=== PATIENT | female | born 1980 | race Caucasian/White ===

== ENCOUNTER → 2019-10-02 | Outpatient (CLI) | payer OTHER ==
[~2019-10-02] MED LIST: FLUO10CA13 PO; GADOTERATE 5 MMOL/10ML VIAL. IVP ONE; HYDR12.58 PO
--- NOTE | 2019-10-02 09:18 | KCIC ---
EXAMINATION: Magnetic resonance imaging (MRI) of the brain and brainstem without and with contrast 10/02/2019 8:00 AM HISTORY: Paresthesia of the skin. Vision loss in the left eye. Memory loss. TECHNIQUE: Multiplanar multi-weighted MRI of the brain and brainstem was performed without and with intravenous contrast using the general brain protocol. Contrast information: 16 mL Gadolinium based contrast COMPARISON: None available. FINDINGS: Evaluation is degraded by motion artifact. The scalp and calvarium are normal. The superior sagittal sinus demonstrates normal venous flow. The corpus callosum is normal in shape and signal intensity. The posterior fossa is unremarkable. The pituitary and sella are normal. The brainstem and craniocervical junction are unremarkable. There is a single subcortical focus of FLAIR signal hyperintensity measuring 4 mm in the right frontal lobe. Diffusion weighted images reveal no hyperintensities to suggest acute cerebral infarction. The susceptibility weighted sequences reveal no evidence of acute or chronic hemorrhage. The ventricles are normal in size and position without evidence of hydrocephalus. There are no areas of abnormal contrast enhancement. The paranasal sinuses are normal. The visualized portions of the mastoids are unremarkable. The orbits appear normal. Normal flow voids are demonstrated in the carotid arteries and basilar artery. IMPRESSION: 1. No evidence for acute or subacute ischemia. 2. Subcortical FLAIR signal hyperintensity measuring 4 mm in the right frontal lobe is nonspecific in this age group. A 3-6 month follow-up MRI of the brain could be of benefit if there is clinical concern for underlying demyelinating disease. No suspicious enhancement is visualized. Electronically signed by: Dulce Guaman MD (10/02/2019 9:15 AM) [facility]
== END ==
LOC: KCIC MRI 07:46
PROVIDERS: ATTEND Psychiatry & Neurology Neurology with Special Qualifications in Child Neurology
DX: R20.2 Paresthesia of skin (principal); H54.62 Unqualified visual loss, left eye, normal vision right eye; R41.3 Other amnesia
CPT/HCPCS: 70553; A9575

== ENCOUNTER → 2019-12-31 | Outpatient (CLI) | payer OTHER ==
[~2019-12-31] MED LIST changes: -GADOTERATE 5 MMOL/10ML VIAL. IVP ONE
--- NOTE | 2019-12-31 09:36 | KCIC ---
BRAIN W/O CONTRAST Date: 12/31/2019 8:00 AM Indication: PARASTHESIA OF SKIN. Follow up to previous MRI here in September. BUE numbness. Comparison: 10/02/2019. Technique: Multiplanar multisequence MRI of the brain was performed without intravenous contrast using the standard protocol. Findings: No acute infarct. No acute or chronic hemorrhage. The ventricles are normal in size and configuration without hydrocephalus. Stable focus of T2/FLAIR hyperintensity in the right frontal subcortical white matter. The scalp and calvarium are normal. The pituitary and sella are normal. No Chiari malformation. The visualized upper cervical spine is normal. The visualized orbits and globes are normal. The visualized paranasal sinuses are clear. The mastoid air cells are clear. Normal flow voids within the vertebral, basilar, and internal carotid arteries indicating patency. IMPRESSION: No acute intracranial process. Stable focus of T2/FLAIR hyperintense signal in the right frontal subcortical white matter, nonspecific but can be seen with chronic small vessel ischemic disease or sequela of chronic migraines. Other considerations would include demyelinating disease, drug toxicity, prior infection (Lyme disease), or prior injury. Electronically signed by: Warren Vann MD (12/31/2019 9:33 AM) [id number]
== END | disposition home or self-care (01) ==
LOC: KCIC MRI 07:52
PROVIDERS: ATTEND Psychiatry & Neurology Neurology with Special Qualifications in Child Neurology
DX: R20.2 Paresthesia of skin (principal)
CPT/HCPCS: 70551

== ENCOUNTER → 2020-04-04 | Outpatient (CLI) | payer OTHER ==
[~2020-04-04] MED LIST changes: +HYDR-3164 PO
== END ==
LOC: LAB 15:27
PROVIDERS: ATTEND Orthopaedic Surgery
DX: Z01.812 Encounter for preprocedural laboratory examination (principal); Z20.828 Contact with and (suspected) exposure to other viral communicable diseases
CPT/HCPCS: U0003

== ENCOUNTER 2020-04-08 06:11 | Day surgery (SDC) | payer OTHER ==
[~2020-04-08] VITALS: Ht 160 cm; Wt 94.8 kg
[~2020-04-08 06:11] MED LIST changes: +CLINDAMYCIN 900MG PREMIX 50 ML IV PRN; -HYDR-3164 PO; +HYDROmorphone 2 MG/ML VIAL IVP PRN; +IV RINGERS,LACTATED 1000ML 1,000 ML IV SCH; +MORPHINE SULFATE 2 MG/ML VIAL. IVP PRN; +PROCHLORPERAZINE 10 MG/2 ML VIAL. IVP PRN; +fentaNYL PF VIAL 100 MCG/2 ML VIAL IVP PRN
[2020-04-08] MEDS ORDERED: HYDR-3164 PO (07:02)
[2020-04-08] MEDS ORDERED: SEVOFLURANE 61 TO 120 MINUTES. IH ONE (07:04)
[2020-04-08] MEDS ORDERED: DEXAMETHASONE SOD PHOS 4 MG/ML VIAL ONE (07:04)
[2020-04-08] MEDS ORDERED: PROPOFOL 10 MG/ML (20ML) VIAL. IV ONE (07:04)
[2020-04-08] MEDS ORDERED: LIDOCAINE 2% PF 5 ML VIAL. ONE (07:04)
[2020-04-08] MEDS ORDERED: ONDANSETRON PF 4 MG/2 ML VIAL. ONE (07:04)
--- NOTE | 2020-04-08 07:04 | DISCH ---
DISCHARGE INSTRUCTIONS Condition on Discharge Condition on Discharge: Stable Activity After Discharge Activity Instructions for Disc: Other, see below (Avoid hard grasp, may do fine motor use such as eating writing typing as symptoms allow) Lifting Instructions after Dis: No heavy lifting Weight Bearing Status after Di: As tolerated Diet after Discharge Diet after Discharge: Regular Wound Incision Care Wound/Incision Care: Ice to area for comfort, Do not change dressing (Keep dressing on for protection, remove only if soiled) Contacting the DRPablo after DC Call your doctor for: Concerns you may have Follow-Up Follow up with: Dr. Aguilar 10 days VERONICA AGUILAR MD Apr 08, 2020 07:04
[2020-04-08] MEDS ORDERED: MIDAZOLAM HCL/PF 2 MG/2 ML VIAL. ONE (07:05)
[2020-04-08] MEDS ORDERED: BUPIVACAINE MPF 0.5% 30 ML VIAL. ONE (07:09)
[2020-04-08] MEDS ORDERED: GLYCOPYRROLATE 1 MG/5 ML VIAL. ONE (07:35)
[2020-04-08] MEDS ORDERED: KETOROLAC 30 MG/ML VIAL. ONE (07:37)
[2020-04-08] MEDS ORDERED: HYDROcodone/APAP 5/325MG 1 TAB TABLET PO ONE (08:15)
[2020-04-08 09:33] VITALS: BP 110/69
--- NOTE | 2020-04-08 20:47 | PDOC4 ---
Operative Note Operative Note Date of surgery: 04/08/2020 Preoperative diagnosis: Right carpal tunnel syndrome Postoperative diagnosis same with moderate median nerve compression at carpal tunnel Operative procedure: Right carpal tunnel release Surgeon: Jeff Vegetable Thinner: Kiran jerry Anesthesia: General Estimated blood loss: 1 cc Complications: None Operative indications: Chantelle has had worsening numbness in the median nerve distribution of the right hand accompanied by verifying EMG studies showing median nerve compression at the carpal tunnel and she has been unresponsive desp ite nonoperative management. We covered risks benefits postoperative course including the possibility of incomplete relief or worsening due to nerve or blood vessel damage, incisional tenderness infection medical or other anesthetic complications. She agrees to proceed with surgical evaluation and treatment Operative text: Patient was identified procedure verified patient placed in the supine position on the operating table. After adequate amounts of general anesthesia were administered right upper extremity was prepped and draped in standard sterile fashion with an upper arm tourniquet. After timeout was performed patient procedure identified and verified the right upper extremity was exsanguinated by Esmarch bandage tourniquet inflated to 250 mmHg and a midline incision was made just distal to the distal palmar crease dissection carried out down to the transverse carpal ligament which was divided sharply first with a scalpel and then at his proximal and distal extent with tenotomy scissors under direct visualization. Median nerve was noted to have moderate compression and complete release was verified visibly and palpably. Half percent plain Marcaine was injected into the skin and subcutaneous tissues and closure accomplished with nylon suture in a mattress fashion. Sterile dressings were applied patient was returned to recovery room in stable condition having tolerated procedure well. Kiran jerry was present for the procedure assisted in patient positioning prepping draping retraction closure and dressings VERONICA LOPEZ MD Apr 08, 2020 20:47
== END 2020-04-08 09:27 | disposition home or self-care (01) ==
LOC: SURG 06:11
PROVIDERS: ATTEND Orthopaedic Surgery
DX: G56.01 Carpal tunnel syndrome, right upper limb (principal); I10 Essential (primary) hypertension; E66.9 Obesity, unspecified; F32.9 Major depressive disorder, single episode, unspecified; H54.62 Unqualified visual loss, left eye, normal vision right eye; Z79.899 Other long term (current) drug therapy; Z88.0 Allergy status to penicillin; Z98.51 Tubal ligation status; Z98.891 History of uterine scar from previous surgery; Z68.37 Body mass index [BMI] 37.0-37.9, adult; Z98.890 Other specified postprocedural states; Z98.82 Breast implant status
CPT/HCPCS: 64721; 81025; J1100; J1885; J2250; J2405; J2704; J3490; J7120

== ENCOUNTER → 2020-06-06 | Outpatient (CLI) | payer OTHER ==
[~2020-06-06] MED LIST changes: -CLINDAMYCIN 900MG PREMIX 50 ML IV PRN; +DEXT10TA23 PO; +HYDR-2761 PO; +HYDR-3164 PO; -HYDROmorphone 2 MG/ML VIAL IVP PRN; -IV RINGERS,LACTATED 1000ML 1,000 ML IV SCH; +LISI1TAB23 PO; -MORPHINE SULFATE 2 MG/ML VIAL. IVP PRN; -PROCHLORPERAZINE 10 MG/2 ML VIAL. IVP PRN; -fentaNYL PF VIAL 100 MCG/2 ML VIAL IVP PRN
== END ==
LOC: LAB 09:26
PROVIDERS: ATTEND Orthopaedic Surgery
DX: Z01.812 Encounter for preprocedural laboratory examination (principal); Z20.822 Contact with and (suspected) exposure to COVID-19; G56.03 Carpal tunnel syndrome, bilateral upper limbs
CPT/HCPCS: U0003

== ENCOUNTER 2020-06-10 06:06 | Day surgery (SDC) | payer OTHER ==
[~2020-06-10] VITALS: Ht 160 cm; Wt 94.8 kg
[~2020-06-10 06:06] MED LIST changes: +CLINDAMYCIN 900MG PREMIX 50 ML IV PRN; -HYDR-2761 PO; +HYDROmorphone 2 MG/ML VIAL IVP PRN; +IV RINGERS,LACTATED 1000ML 1,000 ML IV SCH; +MORPHINE SULFATE 2 MG/ML VIAL. IVP PRN; +PROCHLORPERAZINE 10 MG/2 ML VIAL. IVP PRN; +fentaNYL PF VIAL 100 MCG/2 ML VIAL IVP PRN
[2020-06-10] MEDS ORDERED: SCOPOLAMINE 1.5MG PATCH. TD ONE (06:45)
[2020-06-10] MEDS ORDERED: PROPOFOL 10 MG/ML (20ML) VIAL. IV ONE (06:54)
[2020-06-10] MEDS ORDERED: DEXAMETHASONE SOD PHOS 4 MG/ML VIAL ONE (06:54)
[2020-06-10] MEDS ORDERED: ONDANSETRON PF 4 MG/2 ML VIAL. ONE (06:55)
[2020-06-10] MEDS ORDERED: SEVOFLURANE 31 TO 60 MINUTES. IH ONE ×2 (06:55→07:37)
[2020-06-10] MEDS ORDERED: LIDOCAINE 2% PF 5 ML VIAL. ONE (06:55)
[2020-06-10] MEDS ORDERED: BUPIVACAINE MPF 0.25% 30 ML VIAL. ONE (07:00)
[2020-06-10] MEDS ORDERED: HYDR-2761 PO (07:15)
--- NOTE | 2020-06-10 07:17 | DISCH ---
DISCHARGE INSTRUCTIONS Condition on Discharge Condition on Discharge: Stable Activity After Discharge Activity Instructions for Disc: Other, see below (Fine motor use allowed such as eating writing and typing, avoid hard grasp) Lifting Instructions after Dis: No heavy lifting Weight Bearing Status after Di: Non weight bearing (No hard pushing or weightbearing on operative incision) Diet after Discharge Diet after Discharge: Regular Wound Incision Care Wound/Incision Care: Ice to area for comfort, Do not change dressing (Keep dressing clean dry intact do not remove unless soiled, if it gets wet remove it and place a Band-Aid or other covering) Contacting the after DC Call your doctor for: Concerns you may have Follow-Up Follow up with: Dr. Aguilar 10 days VERONICA AGUILAR MD Jun 10, 2020 07:17
[2020-06-10] MEDS ORDERED: FAMOTIDINE 20 MG/2 ML VIAL ONE (07:18)
[2020-06-10] MEDS ORDERED: KETOROLAC 30 MG/ML VIAL. ONE (07:18)
[2020-06-10] MEDS ORDERED: fentaNYL PF VIAL 100 MCG/2 ML VIAL ONE (07:22)
[2020-06-10 08:45] VITALS: BP 136/74
[2020-06-10] MEDS ORDERED: HYDROcodone/APAP 5/325MG 1 TAB TABLET PO ONE (08:45)
--- NOTE | 2020-06-10 16:23 | PDOC4 ---
Operative Note Operative Note Date of surgery: 05/16/2020 Preoperative diagnosis: Left carpal tunnel syndrome Postoperative diagnosis: Same Operative procedure: left carpal tunnel release Surgeon: Jeff Director Of [employer]: Kiran celaya assist Anesthesia: General Estimated blood loss: 1 cc Complications: None Operative indications: Please see my orthopedic clinic note for detailed operative indications and note that patient has recurrent numbness in the median nerve distribution of her left hand and median nerve compression at the carpal tunnel confirmed by EMG testing. I had gone over with her the possibility of incomplete relief nerve or blood vessel damage infection medical or other anesthetic complications including incisional tenderness among others all her questions were answered she wishes to proceed with surgical evaluation and treatment. Operative text: Patient was identified procedure verified patient placed in the supine position on the operating table. After adequate amounts of Wyatt block anesthesia were administered the left upper extremity was prepped and draped in standard sterile fashion and after timeout was performed patient procedure identified and verified a longitudinal incision was made from the distal wrist crease. Dissection was carried out to the ulnar aspect of the carpal tunnel and sharp dissection carried out along the extent of the transverse carpal ligament. Median nerve was noted to have moderate compression and flexor tendons were free from any synovitis. Median nerve was well medial to the dissection of the transverse carpal ligament. Release of the transverse carpal ligament was verified to be complete both proximally and distally. Thorough irrigation carried out normal saline solution. Closure accomplished with nylon suture. Sterile dressings were then applied and fingers were noted to be warm pink follo wing deflation of the tourniquet. Patient was returned to recovery room in stable condition having tolerated the procedure well VERONICA LOPEZ MD Jun 10, 2020 16:23
== END 2020-06-10 09:27 | disposition home or self-care (01) ==
LOC: SURG 06:06
PROVIDERS: ATTEND Orthopaedic Surgery
DX: G56.02 Carpal tunnel syndrome, left upper limb (principal); I10 Essential (primary) hypertension; E66.9 Obesity, unspecified; F32.9 Major depressive disorder, single episode, unspecified; Z79.899 Other long term (current) drug therapy; Z98.890 Other specified postprocedural states; Z98.51 Tubal ligation status; Z88.0 Allergy status to penicillin; Z88.8 Allergy status to other drugs, medicaments and biological substances
CPT/HCPCS: 64721; 81025; J1100; J1885; J2405; J2704; J3010; J3490